=== PATIENT | female | born 1990 | race Caucasian/White ===

== ENCOUNTER 2017-11-25 08:00 | Inpatient (IN) ==
[2017-11-25] MEDS ORDERED: ZOLPIDEM 5 MG TABLET PO PRN (15:36)
[2017-11-25] MEDS ORDERED: SALINE FLUSH 10ml SYRINGE IV PRN ×2 (15:36→16:08)
[2017-11-25] MEDS ORDERED: DINOPROSTONE 10 MG VAGINAL INSERT VG ONE (16:08)
[2017-11-25] MEDS ORDERED: TERBUTALINE 1 MG/ML VIAL SQ PRN (16:08)
[2017-11-25] MEDS ORDERED: MAG-AL + SIM ORAL LIQUID 30ml PO PRN (16:09)
[2017-11-25] MEDS ORDERED: ACETAMINOPHEN 500 MG TABLET PO PRN (16:09)
[2017-11-25] MEDS ORDERED: CARBOPROST 250 MCG/ML INJECTION IM PRN (16:09)
[2017-11-25] MEDS ORDERED: CALCIUM CARBONATE Chewable 500mg TABLET PO PRN (16:09)
[2017-11-25] MEDS ORDERED: METHYLERGONOVINE 0.2 MG/ML INJECTION IM PRN (16:09)
--- NOTE | 2017-11-25 16:45 | Anesthesia Preoperative Report ---
Anesthesia Epidural/Spinal Rec - Date and Time Date: 11/25/17 Preoperative Diagnosis: Induction for cholecystitis Procedure: Labor Epidural Plan: Epidural - Vital Signs /Para: G: P: Heart Rate: 129 Height and Weight: 5'5 177 lbs - Medictaions & Allergies Inpatient Medications: Current Medications Acetaminophen (Tylenol) 500 - 1,000 mg PO Q4H PRN PRN Reason: Pain Hydrocodone Bitart/Acetaminophen ([employer] 5/325) 1 - 2 tab PO Q4H PRN PRN Reason: Pain Al Hydroxide/Mg Hydroxide (Maalox Plus) 30 ml PO Q3H PRN PRN Reason: Indigestion Calcium Carbonate (Tums) 500 - 1,000 mg PO Q2H PRN PRN Reason: Indigestion Carboprost Tromethamine (Hemabate) 250 mcg IM O PRN PRN Reason: .Downtime Diphenhydramine HCl (Benadryl) 50 mg PO HS PRN PRN Reason: Sleep Lactated Ringer's (Lactated Ringers) 1,000 mls @ 999 mls/hr IV .Q1H1M PRN Methylergonovine Maleate (Methergine) 0.2 mg IM O PRN Misoprostol (Cytotec) 800 mcg MI ONCE PRN Sodium Chloride (Iv Flush) 10 - 80 ml IV PRN PRN PRN Reason: Flushing Sodium Chloride (Iv Flush) 10 - 80 ml IV PRN PRN PRN Reason: Flushing Terbutaline Sulfate (Brethine) 0.25 mg SQ PRN PRN Zolpidem Tartrate (Ambien) 5 mg PO O PRN PRN Reason: Insomnia - Medical History Respiratory: Reports: Other (flu 2 weeks ago) - Surgical History Anesthesia Reactions: None Hx Family Anesthesia Reaction: No History of Motion Sickness: No - Social History Smoking Status: Never smoker Second Hand Exposure: No Substance Use Type: does not use Alcohol Intake Frequency: does not drink Hx Chewing Tobacco Use: No - Physical Exam Respiratory Exam: lungs clear, bilateral breath sounds equal Cardiovascular Exam: regular rate and rhythm - Airway Assessment Mallampati Score: II TMD: 3 Fingerbreadths Neck Extension: good Overall Assessment: no airway concerns - ASA ASA Score: 2 - Discussion Discussion: Discussed risks/options/alternatives of anesthesia and questions answered. Patient consents. Nursing pain assessment noted. Anesthesia Discussion: family member Attestation Statement: Prior to the delivery of any anesthetic medication, I examined the patient, developed the plan, obtained the patient's consent and discussed the risk and benefits of the procedure with the patient/guardian.
[2017-11-25 17:16] VITALS: BMI 29.4
[2017-11-26] MEDS: D5LR 1,000 ML IV PRN ×2 (05:00→14:10)
[2017-11-26] MEDS: LR 1,000 ML IV PRN ×3 (05:00→20:06)
[2017-11-26] MEDS ORDERED: OXYTOCIN DRIP 30 UNIT/500 ML ML IV SCH ×2 (05:00→22:30)
[2017-11-26] MEDS ORDERED: OXYTOCIN DRIP 30 UNIT/500 ML ML IV PRN (05:10)
[2017-11-26] MEDS ORDERED: ONDANSETRON 4 MG/2 ML INJECTION IVP ONE (09:15)
[2017-11-26] MEDS ORDERED: ONDANSETRON 4 MG/2 ML INJECTION IVP PRN (12:06)
[2017-11-26] MEDS ORDERED: ROPIVACAINE 1% 10MG/ML INJ 200 MG, SUFentanil 50 MCG in NS 100 ML EPI PRN (12:06)
[2017-11-26] MEDS ORDERED: NALOXONE 0.4 MG/ML INJECTION IVP PRN (12:06)
[2017-11-26] MEDS ORDERED: DiphenhydrAMINE 50 MG/ML INJECTION IVP PRN (12:06)
--- NOTE | 2017-11-26 20:09 | Anesthesia Preoperative Report ---
Anesthesia Preoperative Record - Date and Time Date: 11/26/17 Preoperative Diagnosis: Proposed Procedure: NPO Since Date: 11/26/17 NPO Since Time: 06:00 Allergies/Adverse Reactions: Allergies Allergy/AdvReac Type Severity Reaction Status Date / Time No Known Allergies Allergy Verified 11/25/17 16:46 - Vital Signs Vital Signs: Temperature 98.0 F 11/25/17 15:25 Pulse Rate 93 11/25/17 15:25 Respiratory Rate 18 11/25/17 15:25 Blood Pressure 113/76 11/25/17 15:25 Height and Weight: Height 5 ft 5 in Weight 80.286 kg Body Mass Index 29.4 - Medications Inpatient Medications: Current Medications Acetaminophen (Tylenol) 500 - 1,000 mg PO Q4H PRN PRN Reason: Pain Hydrocodone Bitart/Acetaminophen ([employer] 5/325) 1 - 2 tab PO Q4H PRN PRN Reason: Pain Al Hydroxide/Mg Hydroxide (Maalox Plus) 30 ml PO Q3H PRN PRN Reason: Indigestion Calcium Carbonate (Tums) 500 - 1,000 mg PO Q2H PRN PRN Reason: Indigestion Carboprost Tromethamine (Hemabate) 250 mcg IM O PRN PRN Reason: .Downtime Diphenhydramine HCl (Benadryl) 50 mg PO HS PRN PRN Reason: Sleep Diphenhydramine HCl (Benadryl) 25 - 50 mg IVP Q3H PRN PRN Reason: Itching Lactated Ringer's (Lactated Ringers) 1,000 mls @ 999 mls/hr IV .Q1H1M PRN Last Admin: 11/26/17 12:13 Dose: 999 mls/hr Dextrose/Lactated Ringer's (Dextrose 5%-Lactated Ringers) 1,000 mls @ 125 mls/ hr IV .Q8H PRN PRN Reason: Labor Last Admin: 11/26/17 14:10 Dose: 125 mls/hr Oxytocin (Pitocin Drip) 30 unit in 500 mls @ 2 mls/hr IV .Q24H PRN; Protocol PRN Reason: Induction/Augmentation Last Admin: 11/26/17 05:00 Dose: 2 mls/hr Ropivacaine 200 mg/ Sufentanil Citrate 50 mcg/ Sodium Chloride 121 mls @ 0 mls/ hr EPI PRN PRN; As Directed PRN Reason: Protocol Methylergonovine Maleate (Methergine) 0.2 mg IM O PRN Misoprostol (Cytotec) 800 mcg IA ONCE PRN Naloxone HCl (Narcan) 0.1 mg IVP Q2M PRN PRN Reason: Respiratory distress Ondansetron HCl (Zofran) 4 mg IVP Q6H PRN PRN Reason: Nausea &/or vomiting Sodium Chloride (Iv Flush) 10 - 80 ml IV PRN PRN PRN Reason: Flushing Last Admin: 11/25/17 23:12 Dose: 10 ml Sodium Chloride (Iv Flush) 10 - 80 ml IV PRN PRN PRN Reason: Flushing Terbutaline Sulfate (Brethine) 0.25 mg SQ PRN PRN Zolpidem Tartrate (Ambien) 5 mg PO O PRN PRN Reason: Insomnia Home Medications: Home Medications Medication Instructions Recorded Confirmed Type Ferrous Sulfate 325 mg PO DAILY 11/25/17 11/25/17 History #103/Iron Fumarate/FA 1 tab PO DAILY 11/25/17 11/25/17 History Ursodiol [Ursodiol] 300 mg PO TID 11/25/17 11/25/17 History - Medical History Respiratory: Reports: Other (flu 2 weeks ago) Gastrointestional: DENIES: Gastroesophageal Reflux Disease Other History: DENIES: Anesthesia Reactions - Surgical History Reproductive Surgery/Treatment: DENIES: Section Anesthesia Reactions: None Hx Family Anesthesia Reaction: No History of Motion Sickness: No - Social History Smoking Status: Never smoker Hx Chewing Tobacco Use: No Second Hand Exposure: No Substance Use Type: does not use Alcohol Intake Frequency: does not drink - Pertinent Findings Laboratory: CBC and BMP 11/25/17 16:40 11/25/17 17:31 - Physical Exam Respiratory Exam: Present: lungs clear, bilateral breath sounds equal Cardiovascular Exam: Present: regular rate and rhythm - Airway Assessment Mallampati Score: II TMD: 3 Fingerbreadths Neck Extension: good Overall Assessment: no airway concerns - ASA ASA Score: 2 - Plan Anesthesia: Neuroaxial - Discussion Discussion: Discussed risks/options/alternatives of anesthesia and questions answered. Patient consents. Nursing pain assessment noted. Present for Discussion: spouse, family member Attestation Statement: Prior to the delivery of any anesthetic medication, I examined the patient, developed the plan, obtained the patient's consent and discussed the risk and benefits of the procedure with the patient/guardian. - Additional Information Seen by Anesthesia: Yes
[2017-11-26] MEDS ORDERED: FAMOTIDINE PB 20 MG/50 ML BAG IV ONE (20:10)
[2017-11-26] MEDS ORDERED: CEFAZOLIN PREMIX (MC ONLY) 2 GM/50 ML BAG IV ONE (20:10)
[2017-11-26] MEDS ORDERED: AZITHROMYCIN IV 500 MG in NS 250ml 250 ML IV ONE (20:10)
[2017-11-26] MEDS ORDERED: CITRIC ACID/SODIUM CITRATE 30ml PO ONE (20:10)
[2017-11-26] MEDS ORDERED: NOZIN NASAL SWAB NAS ONE ×2 (20:10)
[2017-11-26] MEDS ORDERED: OXYTOCIN BOLUS BAG 30 UNIT/500 ML ML IV SCH (20:30)
[2017-11-26] MEDS ORDERED: FentaNYL 100 MCG/2 ML INJECTION ONE (21:42)
[2017-11-26] MEDS ORDERED: ONDANSETRON 4 MG/2 ML INJECTION ONE (21:43)
[2017-11-26] MEDS ORDERED: MORPHINE SULFATE PF 5mg/10ml INJ (Duramorph) ONE (22:13)
[2017-11-26] MEDS ORDERED: HYDROCORTISONE 2.5% CREAM 30gm RECTALLY PRN (22:17)
[2017-11-26] MEDS ORDERED: SIMETHICONE 80 MG CHEWABLE TABLET PO PRN (22:17)
[2017-11-26] MEDS ORDERED: DiphenhydrAMINE 25 MG CAPSULE PO PRN (22:17)
[2017-11-26] MEDS: IBUPROFEN 800 MG TABLET PO PRN (23:34)
[2017-11-26] MEDS: HYDROCODONE/APAP 5mg/325mg TABLET PO PRN (23:34)
[2017-11-27] MEDS: D5LR 1,000 ML IV SCH ×2 (02:20→10:30)
[2017-11-27] MEDS: NOZIN NASAL SWAB NAS SCH ×2 (03:39→13:43)
[2017-11-27] MEDS: HYDROCODONE/APAP 5mg/325mg TABLET PO PRN (08:55)
[2017-11-27] MEDS ORDERED: DEXAMETHASONE 4 MG/ML INJECTION IM ONE (09:12)
[2017-11-27] MEDS ORDERED: DEXAMETHASONE 4 MG/ML INJECTION IVP ONE (10:30)
[2017-11-27] MEDS: DOCUSATE CALCIUM 240 MG CAPSULE PO SCH (13:40)
[2017-11-27] MEDS: SIMETHICONE 80 MG CHEWABLE TABLET PO SCH ×2 (13:40→18:30)
--- NOTE | 2017-11-27 15:35 | Anesthesia Postoperative Note ---
- Date and Time Date: 11/27/17 Time: 15:35 - Status Patient Participated in Evaluation: Patient Participated in Person Vital Signs: Temperature 97.6 F 11/27/17 11:18 Pulse Rate 72 11/27/17 11:18 Respiratory Rate 18 11/27/17 11:18 Blood Pressure 98/64 11/27/17 11:18 Pulse Oximetry 98 11/27/17 11:54 Respiratory Function: Airway Patent Cardiovascular Function: Regular Pulse Mental Status: Alert and Oriented Pain Intensity: 2 Hydration: Taking PO Fluids Complications During Recover: None Apparent Post Anesthesia Care Notes: full motor and sensation has returned - Follow-Up Instructions Instructions: Per Surgeon
--- NOTE | 2017-11-27 16:14 | Progress Note ---
OB PP Progress Note Free Text - Date Date: 11/27/17 - Progress Note Progress Note: POD1 vss af labs noted requests nuñez removal q&a
[2017-11-27] MEDS: IBUPROFEN 800 MG TABLET PO PRN (18:30)
[2017-11-28] MEDS: SIMETHICONE 80 MG CHEWABLE TABLET PO SCH ×6 (00:02→23:01)
[2017-11-28] MEDS: IBUPROFEN 800 MG TABLET PO PRN ×2 (09:26→18:34)
[2017-11-28] MEDS: NOZIN NASAL SWAB NAS SCH ×2 (09:26→23:01)
[2017-11-28] MEDS: DOCUSATE CALCIUM 240 MG CAPSULE PO SCH (09:26)
--- NOTE | 2017-11-28 13:28 | Progress Note ---
OB PP Progress Note Free Text - Date Date: 11/28/17 - Progress Note Progress Note: vss af doing well will repeat CMP tomorrow to check LFT's q&a
[2017-11-29] MEDS: NOZIN NASAL SWAB NAS SCH ×2 (06:10→13:32)
[2017-11-29] MEDS: IBUPROFEN 800 MG TABLET PO PRN (06:10)
[2017-11-29 07:57] VITALS: RESP 16
--- NOTE | 2017-11-29 09:25 | Operative Note ---
DATE OF SURGERY 11/26/2017 PREOPERATIVE DIAGNOSIS 1. 27-year-old 1 at 36 weeks gestational age. 2. Cholestasis. 3. Failed induction. POSTOPERATIVE DIAGNOSIS 1. 27-year-old 1 at 36 weeks gestational age. 2. Cholestasis. 3. Failed induction. PROCEDURE Primary low transverse section. SURGEON Charissa Silva MD INDUSTRY SEGMENT SPECIALIST Se Allen MD ANESTHESIA Epidural COLLAR SEWER Jeffrey Dickerson CRNA COMPLICATIONS None EBL 800 mL FINDINGS Viable male , cephalic LOT position, clear fluids, Apgars , weight 2920 grams, name "Josiah". Normal-appearing uterus, tubes and ovaries. INDICATIONS Fatmata was brought in the evening of 11/25/2017 for cervical ripening with Cervidil. The next morning, her cervix was still closed, but I was able to thread a Carney bulb through the cervix. She was also started on Pitocin. Six hours later, her cervix was still only 1 cm dilated. I removed 10 mL of fluid from the Carney bulb and was able to pull the Carney bulb out at that point. Her membranes were ruptured artificially returning clear fluids. An IUPC was placed to document adequate contractions. She never changed past 1.5 cm and -3 station all day despite adequate contractions, so she was consented for a section. DESCRIPTION OF PROCEDURE The patient was taken to the operating room where her epidural was brought up to adequate surgical levels. She already had a Carney catheter in place. Her IUPC was removed. She was prepared and draped in the normal sterile fashion. A Pfannenstiel skin incision was made 2 cm above the symphysis pubis and carried down to the fascia. The fascia was incised in the midline and extended laterally with the Biggs scissors. The fascia was elevated and the underlying rectus muscles were dissected off. The peritoneum was opened with a combination of blunt and sharp dissection. This was extended superiorly and inferiorly with good visualization of the bladder. The bladder blade was inserted. The bladder was low enough on the uterus that a bladder flap was not created. The lower uterine segment was incised in a transverse fashion layer by layer with a scalpel and bluntly extended. We attempted to deliver the head multiple times. I put a soft vacuum on the head and maternal tissue was extruded. I had two pop-offs with the vacuum. Bandage scissors were then used to incise part of the right rectus muscles. The head finally delivered at this point. The nose and mouth were suctioned. The cord was clamped and cut. The was handed to Dr. Garcia who was asked to attend due to the prematurity and cholestasis. The placenta delivered spontaneously. The uterus was exteriorized and cleared of all clots and debris. The uterine incision was closed with running locked 0 Monocryl. Hemostasis was obtained with the cautery. The uterus was returned to the abdomen. The gutters were cleared of all clots and debris. The uterine incision was inspected one final time and still noted to be hemostatic. The peritoneum was closed with running 2-0 Vicryl. Hemostasis was obtained in the rectus muscles with the cautery. The right rectus muscle fibers that had been transected had contracted down too much to reapproximate them. The fascia was closed with running 0 Vicryl. Hemostasis was obtained in the subcutaneous tissue with the cautery. The skin was closed with 4-0 Vicryl in a subcuticular manner. Steri-Strips were placed. Sponge, sharp and instrument counts were correct. The patient tolerated the procedure well and was taken to the recovery room in good condition. ANY
[2017-11-29] MEDS: SIMETHICONE 80 MG CHEWABLE TABLET PO SCH (10:18)
[2017-11-29] MEDS: DOCUSATE CALCIUM 240 MG CAPSULE PO SCH (10:18)
[2017-11-29] MEDS ORDERED: IRON POLYSACCHARIDE COMPLEX 150 MG CAPSULE PO SCH (12:30)
--- NOTE | 2017-11-29 12:38 | OB/GYN Progress Note ---
OB-PP Progress Note - General PPD3 Maternal Group B Strep: Negative Maternal blood type: A+ Maternal Rubella Status: Immune - Subjective Date: 11/29/17 Lochia: Minimal Pain: controlled Voiding: voiding Subjective Comments: The itching has resolved. - Objective Vital Signs: Last Vital Signs Temp 98.7 F 11/29/17 07:00 Pulse 85 11/29/17 07:00 Resp 16 11/29/17 07:00 BP 119/72 11/29/17 07:00 Pulse Ox 91 11/29/17 07:00 General: alert and oriented Abdomen: fundus firm, non-tender Incision: normal, clean, dry, intact Extremities: non-tender Laboratory: Laboratory Results - last 24 hr 11/29/17 06:46 Turbidity < 20 Sodium 141 Potassium 3.6 Chloride 107 Carbon Dioxide 26 Anion Gap 8 BUN 13.0 Creatinine 0.5 L GFR Calculation 147 BUN/Creatinine Ratio 26 Glucose 86 Calculated Osmolality 270 Calcium 8.2 L Total Bilirubin 0.50 Icterus Index < 2 AST 44 H ALT 41 Alkaline Phosphatase 188 H Total Protein 6.2 L Albumin 2.9 L Globulin 3.3 Albumin/Globulin Ratio 0.9 L Specimen Hemolysis 96 H - Assessment Assessment: Primary C/S, Anemia Comments: Cholestasis- resolving - Plan Plan: routine care, iron, discharge home, continue PNV
[2017-11-29 14:25] VITALS: PULSE 80
[2017-11-29 14:47] VITALS: BP 123/80; TEMP 98.9; O2SAT 98
== END 2017-11-29 15:02 | disposition home or self-care (01) | DRG 765 ==
LOC: MC 15:31
PROVIDERS: ADMIT Obstetrics & Gynecology; ATTEND Obstetrics & Gynecology